=== PATIENT | male | born 1960 | race Caucasian/White ===

== ENCOUNTER 2016-11-28 17:34 | Emergency (ER) | payer OTHER ==
[~2016-11-28] VITALS: Ht 182.9 cm; Wt 84.5 kg
[2016-11-28 19:33] VITALS: Ht 182.9 cm; Wt 84.5 kg
[2016-11-28] MEDS ORDERED: SOD CHLORIDE 0.9% 1,000 ML IV STA (22:38)
[2016-11-28] MEDS ORDERED: MELO-110 PO (22:46)
[2016-11-28] MEDS ORDERED: LEVO200T6 PO (22:46)
[2016-11-28] MEDS ORDERED: TAMS0.4C2 PO (22:46)
[2016-11-28] MEDS ORDERED: OXYC-431 PO (22:48)
[2016-11-28] MEDS ORDERED: OMEP20CA16 PO (22:49)
[2016-11-28 23:22] LABS: ADD UMIC YES; URINE BILIRUBIN (Dip) NEGATIVE (NEGATIVE); URINE BLOOD (Dip) 2+ (NEGATIVE); URINE COLOR LT. YELLOW (YELLOW); URINE GLUCOSE (Dip) NEGATIVE (NEGATIVE); URINE KETONES (Dip) NEGATIVE (NEGATIVE); URINE LEUKOCYTE ESTERASE (Dip) 2+ (NEGATIVE); URINE NITRITE (Dip) NEGATIVE (NEGATIVE); URINE TOTAL PROTEIN (Dip) TRACE (NEGATIVE); URINE UROBILINOGEN (Dip) 1.0 E.U./dL (0.1-1.0)
[2016-11-28 23:27] LABS: BASOPHIL # 0.1 10^3/ul (0.0-0.1); BASOPHILS % 0.8 % (0.0-2.0); EOSINOPHILS # 0.1 10^3/ul (0.0-0.5); EOSINOPHILS % 1.2 % (0.0-7.0); HEMATOCRIT 38.7 % (42.0-52.0); LYMPHOCYTES # 0.8 10^3/ul (0.8-2.9); LYMPHOCYTES % 9.8 % (15.0-51.0); MEAN CORPUSCULAR HGB CONC 33.6 g/dl (32.0-37.0); MEAN CORPUSCULAR VOLUME 86.4 fl (82.0-101.0); MEAN PLATELET VOLUME 8.1 fl (7.4-10.4); MONOCYTES % 11.4 % (0.0-11.0); NEUTROPHIL # 6.5 10^3/ul (1.6-7.5); NEUTROPHILS % 76.8 % (39.0-77.0); PLATELET COUNT 462 10^3/UL (140-440); RED BLOOD COUNT 4.48 10^6/ul (4.70-6.10); RED CELL DISTRIBUTION WIDTH 14.8 % (11.5-14.5); UNCORRECTED WBC 8.5 10^3/ul (4.8-10.8); WHITE BLOOD COUNT 8.5 10^3/ul (4.8-10.8)
[2016-11-28 23:30] LABS: ALBUMIN 3.2 g/dl (3.3-4.9); POTASSIUM 3.8 mmol/L (3.5-5.1)
[2016-11-28 23:33] LABS: BILIRUBIN,INDIRECT 0.2 mg/dl (0-1.1); BILIRUBIN,TOTAL 0.2 mg/dl (0.2-1.3); CALCIUM 8.7 mg/dl (8.4-10.2); CREATININE 1.4 mg/dl (0.61-1.24); TOTAL PROTEIN 6.3 g/dl (6.1-8.1)
[2016-11-28 23:34] LABS: ALBUMIN/GLOBULIN RATIO 1.03
[2016-11-28 23:37] LABS: CONDITION 1; LH ANALYZER COMMENTS 1
[2016-11-29] MEDS ORDERED: CEFTRIAXONE 1 GM/50 ML (PMX) 50 ML IVPB ONE
[2016-11-29 00:08] LABS: BACTERIA,URINE MODERATE; SQUAMOUS EPITHELIAL CELL,UR OCCASIONAL; URINE RBCS >50 /HPF (0)
[2016-11-29] MEDS ORDERED: BACTDS PO ×2 (00:16→00:20)
--- NOTE | 2016-11-29 00:16 | ERD ---
ER Documentation Chief Complaint Date/Time DATE: 11/29/16 TIME: 00:13 Chief Complaint bilateral flank pain x 2 days HPI This is a 56-year-old male who presents to the emergency room for evaluation of bilateral flank pain for the past 2 days. The patient does state that he has been diagnosed with a urinary tract infection. He does state that he had antibiotics written for him as prescription however he lost them. The patient came to the ER today for evaluation. He has been denying any fever, but does state that he has pain in the bilateral flanks which she describes as achy pain. ROS All systems reviewed and are negative except as per history of present illness. Medications Home Meds Reported Medications Omeprazole* (Omeprazole*) Unknown Strength Capsule.dr, MG PO DAILY, #30 CAP 11/28/16 Oxycodone HCl/Acetaminophen (Oxycodone-Acetaminophen 10-325) 1 Each Tablet, 1 EACH PO BID, TAB 11/28/16 Meloxicam* (Mobic*) 15 Mg Tablet, 15 MG PO DAILY, #30 TAB 11/28/16 Tamsulosin Hcl* (Tamsulosin Hcl*) 0.4 Mg Cap.er.24h, 0.4 MG PO DAILY, CAP 11/28/16 Levothyroxine Sodium* (Levothyroxine Sodium*) 200 Mcg Tablet, 200 MCG PO BEFORE BREAKFAST, #30 TAB 11/28/16 Allergies Allergies: Coded Allergies: Penicillins (Verified Allergy, Mild, 11/28/16) PMhx/Soc History of Surgery: Yes (COLON SX, COLOSTOMY PLACEMENT) Anesthesia Reaction: No Hx Neurological Disorder: No Hx Respiratory Disorders: No Hx Cardiac Disorders: Yes (htn) Hx Psychiatric Problems: No Hx Miscellaneous Medical Probl: Yes (colon ca) Hx Alcohol Use: No Hx Substance Use: Yes (MARIJUANA) Hx Tobacco Use: Yes Smoking Status: Current every day smoker Physical Exam Vitals Vital Signs Date Time Temp Pulse Resp B/P Pulse Ox O2 Delivery O2 Flow Rate FiO2 11/28/16 22:30 98.8 83 20 146/90 100 Room Air 11/28/16 19:33 98.8 91 20 134/81 99 Physical Exam INITIAL VITAL SIGNS: Reviewed by me GENERAL: The patient is well developed and appropriate for usual state of health in no apparent distress HEENT: Pupils equal, round, and reactive to light. EOMI. There is no scleral icterus. NECK: C-spine is soft and supple, there is no meningismus. There is no cervical lymphadenopathy. LUNGS: Clear to auscultation bilaterally. There are no rales, wheezes or rhonchi. HEART: Regular rate and rhythm, no murmurs, clicks, rubs or gallops. ABDOMEN: Bilateral CVAT, the soft, non-tender, non-distended. There are bowel sounds in all four quadrants. No rebound or guarding. EXTREMITIES: There is no peripheral cyanosis or edema. No focal swelling or erythema. NEUROLOGICAL: The patient moves all four extremities with 5/5 strength. Cranial nerves II - XII are intact. Normal gait. Alert and oriented SKIN: There is no apparent rash or petechiae. HEME/LYMPHATIC: There is no evidence of excessive bruising or lymphedema. PSYCHIATRIC: The patient does not appear anxious or depressed. Result Diagram: 11/28/16 2300 11/28/16 2300 Results 24 hrs Laboratory Tests Test 11/28/16 23:00 Alanine Aminotransferase (ALT/SGPT) 98IU/L Albumin 3.2g/dl Albumin/Globulin Ratio 1.03 Alkaline Phosphatase 362IU/L Anion Gap 16 Aspartate Amino Transf (AST/SGOT) 59IU/L Basophils # 0.110^3/ul Basophils % 0.8% Blood Morphology Comment Blood Urea Nitrogen 24mg/dl Calcium Level 8.7mg/dl Carbon Dioxide Level 27mmol/L Chloride Level 101mmol/L Creatinine 1.40mg/dl Direct Bilirubin 0.00mg/dl Eosinophils # 0.110^3/ul Eosinophils % 1.2% Globulin 3.10g/dl Glucose Level 90mg/dl Hematocrit 38.7% Hemoglobin 13.0g/dl Indirect Bilirubin 0.2mg/dl Lipase 46U/L Lymphocytes # 0.810^3/ul Lymphocytes % 9.8% Mean Corpuscular Hemoglobin 29.0pg Mean Corpuscular Hemoglobin Concent 33.6g/dl Mean Corpuscular Volume 86.4fl Mean Platelet Volume 8.1fl Monocytes # 1.010^3/ul Monocytes % 11.4% Neutrophils # 6.510^3/ul Neutrophils % 76.8% Nucleated Red Blood Cells # 0.010^3/ul Nucleated Red Blood Cells % 0.0/100WBC Platelet Count 60362^3/UL Potassium Level 3.8mmol/L Red Blood Count 4.4810^6/ul Red Cell Distribution Width 14.8% Sodium Level 140mmol/L Total Bilirubin 0.2mg/dl Total Protein 6.3g/dl Urine Bacteria MODERATE Urine Bilirubin NEGATIVE Urine Clarity CLEAR Urine Color LT. YELLOW Urine Glucose NEGATIVE% Urine Hemoglobin 2+ Urine Ketones NEGATIVE Urine Leukocyte Esterase 2+ Urine Microscopic RBC >50/HPF Urine Microscopic WBC >50/HPF Urine Nitrite NEGATIVE Urine Specific Marcy 1.020 Urine Squamous Epithelial Cells OCCASIONAL Urine Total Protein TRACE Urine Urobilinogen 1.0 E.U./dL Urine pH 6.0 White Blood Count 8.510^3/ul Current Medications Medications (Trade) Dose Ordered Sig/Naa Route PRN Reason Start Time Stop Time Status Last Admin Dose Admin Sodium Chloride 1,000 ml @ 1,000 mls/hr Q1H STAT IV 11/28/16 22:38 11/28/16 23:37 DC 11/28/16 23:15 Ceftriaxone Sodium (Rocephin) 50 ml @ 100 mls/hr ONCE ONCE IVPB 11/29/16 00:00 11/29/16 00:29 11/29/16 00:01 Procedures/MDM This is a 56-year-old male presents to the emergency room for evaluation of bilateral flank pain. The patient was found to have acute cystitis here in the emergency room. He did lose his prescription for antibiotics previously. I did give the patient 1 g Rocephin and he will be discharged home at this time with a prescription for Bactrim to take over the course of the next 10 days. This patient has a baseline creatinine. He is afebrile, and no signs of pyelonephritis at this time. Smoking Cessation Therapy: Pt. was lectured for greater than 3 minutes on the health risks of continued smoking and the benefits of cessation. Departure Diagnosis: Primary Impression: Acute cystitis Additional Impressions: Flank pain Normocytic anemia Tobacco abuse Tobacco abuse counseling Condition: GILL Cespedes DO Nov 29, 2016 00:16
[2016-11-29 00:46] VITALS: BP 135/84; PULSE 80; RESP 20; TEMP 98.8
== END 2016-11-29 00:40 | disposition home or self-care (01) ==
LOC: E/R 17:34
DX: N30.00 Acute cystitis without hematuria (principal); D64.9 Anemia, unspecified; F17.210 Nicotine dependence, cigarettes, uncomplicated; I10 Essential (primary) hypertension; Z85.038 Personal history of other malignant neoplasm of large intestine; Z71.6 Tobacco abuse counseling
CPT/HCPCS: 36415; 80053; 81001; 83690; 85025; 87086; 96374; J0696; J7030; Z7502; 81003

== ENCOUNTER 2017-09-11 03:14 | Emergency (ER) | payer OTHER ==
[~2017-09-11] VITALS: Ht 180.3 cm; Wt 87.8 kg
[~2017-09-11 03:14] MED LIST: BACTDS PO; LEVO200T6 PO; MELO-210 PO; OMEP20CA16 PO; OXYC-431 PO; TAMS0.4C2 PO
[2017-09-11 03:19] VITALS: Ht 180.3 cm; Wt 87.8 kg
[2017-09-11] MEDS ORDERED: morphine 4 MG/ML VIAL IV ONE (05:13)
[2017-09-11] MEDS ORDERED: ONDANSETRON 4 MG INJ IV ONE (05:13)
--- NOTE | 2017-09-11 05:58 | RADRPT ---
PROCEDURE: Chest. CLINICAL INDICATION: Chest pain. TECHNIQUE: 2 frontal views of the chest were obtained. COMPARISON: 11/08/2013. FINDINGS: The cardiac silhouette is within normal limits. The aortic arch is unremarkable. There is no focal consolidation, vascular congestion or pleural effusion. There is no pneumothorax. IMPRESSION: No evidence for active cardiopulmonary disease. .Krishan Malave MD, Date Time Electronically viewed and signed by .Krishan Malave MD, on 09/11/2017 05:58 .T/
[2017-09-11 06:08] VITALS: BP 120/78; PULSE 81; RESP 20; TEMP 98.1
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
[2017-09-11] MEDS ORDERED: KETOROLAC 15 MG INJ IV STA (06:40)
[2017-09-11 07:41] LABS: BASOPHILS % 0.4 % (0.0-2.0); EOSINOPHILS # 0.2 10^3/ul (0.0-0.5); EOSINOPHILS % 2.1 % (0.0-7.0); HEMATOCRIT 38.7 % (42.0-52.0); HEMOGLOBIN 12.5 g/dl (14.0-18.0); LYMPHOCYTES # 0.9 10^3/ul (0.8-2.9); LYMPHOCYTES % 11.1 % (15.0-51.0); MEAN CORPUSCULAR HEMOGLOBIN 27.9 pg (29.0-33.0); MEAN CORPUSCULAR HGB CONC 32.3 g/dl (32.0-37.0); MEAN CORPUSCULAR VOLUME 86.4 fl (82.0-101.0); MONOCYTE # 0.9 10^3/ul (0.3-0.9); MONOCYTES % 10.5 % (0.0-11.0); NEUTROPHIL # 6.2 10^3/ul (1.6-7.5); NEUTROPHILS % 75.7 % (39.0-77.0); PLATELET COUNT 257 10^3/UL (140-415); RED BLOOD COUNT 4.48 10^6/ul (4.70-6.10); RED CELL DISTRIBUTION WIDTH 13.3 % (11.5-14.5); WHITE BLOOD COUNT 8.2 10^3/ul (4.8-10.8)
[2017-09-11] MEDS ORDERED: POTA8CAP PO (07:43)
[2017-09-11] MEDS ORDERED: FURO20TA3 PO (07:43)
[2017-09-11] MEDS ORDERED: HYDR25TA6 PO (07:44)
[2017-09-11 08:03] LABS: INR 1.19; PROTIME 15.2 Sec (12.2-14.2); PT RATIO 1.2
[2017-09-11 08:04] LABS: ALBUMIN 3.7 g/dl (3.3-4.9); ALBUMIN/GLOBULIN RATIO 1.37; BILIRUBIN,INDIRECT 0.6 mg/dl (0-1.1); BILIRUBIN,TOTAL 0.6 mg/dl (0.2-1.3); CALCIUM 9.7 mg/dl (8.4-10.2); CREATININE 1.53 mg/dl (0.61-1.24); PARTIAL THROMBOPLASTIN TIME 41.7 Sec (25.0-35.0); POTASSIUM 4.5 mmol/L (3.5-5.1); TOTAL PROTEIN 6.4 g/dl (6.1-8.1)
--- NOTE | 2017-09-11 09:35 | RADRPT ---
PROCEDURE: Ultrasound of the bilateral lower extremity venous system. CLINICAL INDICATION: Bilateral lower extremity edema. TECHNIQUE: Samuels scale with and without compression, color doppler, spectral doppler of the venous system of the bilateral lower extremities was performed. Venous augmentation maneuvers were utilized . COMPARISON: No prior studies are available for comparison. FINDINGS: RIGHT: Common femoral vein:Patent and compressible. Femoral vein:Patent and compressible. Popliteal vein:Patent and compressible. Visualized calf veins:Patent and compressible. Soft tissues:Normal LEFT: Common femoral vein:Patent and compressible. Femoral vein:Patent and compressible. Popliteal vein:Patent and compressible. Visualized calf veins:Patent and compressible. Soft tissues:Normal IMPRESSION: 1. No evidence of deep vein thrombosis. RPTAT: [facility] Physician Renato Date Time Electronically viewed and signed by Physician Renato on 09/11/2017 09:34 /
--- NOTE | 2017-09-11 10:24 | RADRPT ---
PROCEDURE: US Scrotal, limited CLINICAL INDICATION: Swelling TECHNIQUE: Images were taken during real time interrogation of the scrotum. Color Doppler was also performed. The examination was terminated before completion as the patient refused to complete the study not being able to tolerate the positioning due to pain COMPARISON: None FINDINGS: Right Testicle: Is quite enlarged measuring approximately 9 cm in diameter. The posterior portion of the testicle appears normal but anteriorly there is a large cystic lesion c ontaining multiple thick septations with multiple small branches extending off the septations. The a cute margins of the edges of the testicle about the cystic lesion suggests that the cystic lesion as intratesticular rather than extratesticular compressing the testicle. The cystic lesion is hypovasc ular. There is no hydrocele. No varicocele is evident. Left testicle: The left testicle was only partially seen at the edge of the image. The portion visualized appeared unremarkable and demonstrate vascular flow. There appeared to be a moderate left hydrocele. Right Epidydemus: Not adequately evaluated Left Epedidymus: Not adequately evaluated IMPRESSION: 1. Incomplete examination as the patient refused further study due to inability to tolerate the vikas n. 2. Complex largely cystic right testicular mass with multiple thick septations with multiple small branches extending off the septations. The cystic lesion appears hypovascular. Although this may rep resent an old intratesticular hematoma that has liquefied, neoplastic etiology cannot be excluded. 2. Moderate left hydrocele with only a small portion of the left testicle visualized. That portion visualized appears unremarkable. Findings of complex septated right testicular cystic mass were telephoned by Bryan Orta MD to Gopal Aguilar on 09/11/2017 at 1017 hours. Physician Simona Date Time Electronically viewed and signed by Physician Simona on 09/11/2017 10:23 /
--- NOTE | 2017-09-11 10:31 | RADRPT ---
PROCEDURE: XR Left Hip CLINICAL INDICATION: Pain TECHNIQUE: A single AP supine view of the left hip was submitted COMPARISON: Comparison to the previous CT of the abdomen and pelvis done 11/08/2013. FINDINGS: Osseous structures: Since the previous study, there has been lysis and flattening of the left femora l head along with widening and erosion involving the acetabulum. The osseous elements are somewhat r arefied but otherwise intact. Joint spaces: There is narrowing of the weightbearing aspect of the joint space of the right hip. No joint effusion is evident. The sacroiliac joints appear unremarkable. Soft tissues: Surgical clips project in the pelvis. IMPRESSION: 1. Interval erosion and flattening of the left femoral head and acetabulum with narrowing of the melani int space. This could be a sequelae of previous infection. 2. The osseous elements appear mildly osteopenic. 3. Previous pelvic surgery. Physician Simona Date Time Electronically viewed and signed by Physician Simona on 09/11/2017 10:30 RH/
== END 2017-09-11 10:21 | disposition left against medical advice (07) ==
LOC: E/R 03:14
DX: N50.89 Other specified disorders of the male genital organs (principal); R60.0 Localized edema; N18.9 Chronic kidney disease, unspecified; I12.9 Hypertensive chronic kidney disease with stage 1 through stage 4 chronic kidney disease, or unspecified chronic kidney disease; F17.210 Nicotine dependence, cigarettes, uncomplicated; E03.9 Hypothyroidism, unspecified; Z85.038 Personal history of other malignant neoplasm of large intestine
CPT/HCPCS: 71010; 73510; 76870; 80053; 83880; 84439; 84443; 85025; 85610; 85730; 86140; 87040; 93970; 96374; 96375; J1885; J2270; J2405; Z7502

== ENCOUNTER → 2017-09-26 | Outpatient (CLI) | payer OTHER ==
[~2017-09-26] MED LIST changes: -BACTDS PO; +FURO20TA3 PO; +HYDR25TA6 PO; -MELO-210 PO; -OMEP20CA16 PO; +POTA8CAP PO; -TAMS0.4C2 PO
--- NOTE | 2017-09-26 14:13 | RADRPT ---
PROCEDURE: XR Hip. CLINICAL INDICATION: Pain TECHNIQUE: AP and frog lateral views of the left hip were performed. COMPARISON: 09/11/2017 FINDINGS: Redemonstration of lysis and flattening of the left femoral head with associated widening and erosio n of the acetabulum. The right hip demonstrates mild degenerative changes but is otherwise unremarka ble. The sacroiliac joints appear unremarkable. Surgical clip projects over the pelvis. IMPRESSION: Stable appearance of the left hip with erosion and flattening of the left femoral head and acetabulu m. RPTAT:AAJJ Physician Robby Date Time Electronically viewed and signed by Physician Robby on 09/26/2017 14:12 /
--- NOTE | 2017-09-26 14:26 | HKNOTE ---
DATE OF SERVICE: 09/26/2017 CHIEF COMPLAINT: Left hip pain. HISTORY OF PRESENT ILLNESS: This is a 56-year-old male with history of colon cancer and previous ra diation. He states that he had received radiation in 2009. His left hip pain has been worsening si nce his radiation. He has difficulty ambulating. He uses a cane for ambulation. He takes Percocet 10/325 mg daily. The pain is interfering with his activities of daily living. He is a current tob acco smoker. He denies any recent infections. He denies history of steroid use. He denies any alc ohol use. He has no other complaints. PAST MEDICAL HISTORY: Colon cancer, status post radiation. MEDICATIONS: Percocet 10/325 mg daily. PAST SURGICAL HISTORY: None. SOCIAL HISTORY: He lives with his friend. He smokes 2 cigarettes per day. He admits to occasional alcohol use. He denies any other drug use. FAMILY HISTORY: None. ALLERGIES: NO KNOWN DRUG ALLERGIES. GAIT: Antalgic gait, reciprocal gait pattern. PHYSICAL EXAMINATION: EXTREMITIES: Left hip examination, 0-40 degrees of flexion, -20 degrees internal rotation, 5 degree s external rotation, 5 degrees abduction. The left leg is shorter than the right leg. There is swe lling of bilateral ankles with pitting edema. 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 There are degenerative changes of the hip joint with loss of superior lateral acetabular rim. There is erosion of the acetabulum with superior migration of the femoral head. IMPRESSION: A 66-year-old male status post radiation therapy with left hip advanced avascular necro sis. PLAN: I discussed treatment options with Mr. Ortiz. I would like for him to quit smoking prior t o surgery. I also explained to him that he has pitting edema of his bilateral ankles. I would like for him to be evaluated by his primary care physician. We will request authorization for jessica melgar. He will follow up with me in 4 weeks. Dictated By: JA ALBERT/JOBY Conf#: [id number] DID#: [id number]
== END | disposition home or self-care (01) ==
LOC: HKI 13:38
PROVIDERS: ATTEND Orthopaedic Surgery Adult Reconstructive Orthopaedic Surgery
DX: M87.852 Other osteonecrosis, left femur (principal); Z72.0 Tobacco use; Z85.038 Personal history of other malignant neoplasm of large intestine
CPT/HCPCS: 73502; Z7500; G0463

== ENCOUNTER 2018-01-19 14:53 | Emergency (ER) | END 2018-01-19 17:58 | disposition home or self-care (01) ==

== ENCOUNTER → 2018-02-04 | Outpatient (CLI) | END | disposition home or self-care (01) ==